=== PATIENT | male | born 1990 ===

== ENCOUNTER 2022-08-05 12:47 | Emergency (ER) | payer SELFPAY ==
[2022-08-05] MEDS ORDERED: Lidocaine 1% w/Epinephrine 1:100K 20 ML VIAL ONE (13:06)
== END 2022-08-05 13:38 | disposition home or self-care (01) ==
LOC: ERS 12:47
DX: L02.213 Cutaneous abscess of chest wall (principal); J45.909 Unspecified asthma, uncomplicated; F17.210 Nicotine dependence, cigarettes, uncomplicated
CPT/HCPCS: 10060